=== PATIENT | female | born 1940 | race Caucasian/White ===

== ENCOUNTER 2023-11-16 08:15 | Day surgery (SDC) | payer MEDICARE ==
[~2023-11-16 08:15] MED LIST: ALPRAZolam 0.25 MG TAB PO PRN; ALPRAZolam 0.5 MG TAB PO PRN; ASPIRIN 325 MG TAB PO PRN; HEPARIN SODIUM,PORCINE (1 ML) 2,500 UNIT in SODIUM CHLORIDE 0.9% 250 ML IRRIGATION PRN; ZOLPIDEM 5 MG TAB PO PRN
[2023-11-16 08:43] VITALS: TEMP 98.2
[2023-11-16] MEDS: IV FLUID CONTINUATION 1,000 ML IV ONE (08:43)
[2023-11-16] MEDS: EMPTY BAG 1 BAG with SODIUM CHLORIDE 0.9% 1,000 ML IV SCH (08:43)
[2023-11-16 08:48] LABS: Basophils % (A) 0 %; Eosinophils # (A) 0.1 k/uL (0-0.7); Eosinophils % (A) 1 %; HCT 38.7 % (34.0-46.0); HGB 12.4 gm/dL (11.4-16.0); Hypochromasia Slight; Lymphocytes # (A) 1.7 k/uL (1.0-4.8); Lymphocytes % (A) 23 %; MCH 32.6 pg (25.0-35.0); MCV 101.8 fL (80.0-100.0); Macrocytosis Slight; Mean Platelet Volume 6.6; Monocytes # (A) 0.5 k/uL (0-1.0); Monocytes % (A) 7 %; Neutrophils # (A) 4.9 k/uL (1.3-7.7); Neutrophils % (A) 67 %; Platelet Count 268 k/uL (150-450); RDW 13.1 % (11.5-15.5); WBC 7.3 k/uL (3.8-10.6)
[2023-11-16 09:03] LABS: African American GFR (CKD) 64 (>60 ml/min/1.73 sqM); Anion Gap 11 mmol/L; Blood Urea Nitrogen 33 mg/dL (7-17); Calcium 9.6 mg/dL (8.4-10.2); Carbon Dioxide 22 mmol/L (22-30); Chloride 105 mmol/L (98-107); Glucose 98 mg/dL (74-99); Non-African American GFR(CKD) 56 (>60 ml/min/1.73 sqM); Sodium 138 mmol/L (137-145)
[2023-11-16] MEDS ORDERED: fentaNYL (PF) 50 MCG/ML 2 ML AMP ONE (10:32)
[2023-11-16] MEDS: MIDAZOLAM 2 MG/2 ML VIAL IVP ONE (10:37)
[2023-11-16] MEDS: LIDOCAINE 1% INJ 10MG/ML (20 ML MDV) SQ ONE (10:38)
[2023-11-16] MEDS: IOPAMIDOL-370 100ML BTL INJ ONE (10:50)
[2023-11-16] MEDS: HEPARIN SODIUM,PORCINE 10,000 UNIT in SODIUM CHLORIDE 0.9% 1,000 ML IRRIGATION PRN (10:50)
[2023-11-16] MEDS ORDERED: NALOXONE 0.4 MG/ML 1 ML VIAL IVP PRN (10:54)
--- NOTE | 2023-11-16 10:59 | P.PCN ---
Date of Procedure: 11/16/23 Operative Findings: AN ABDOMINAL AORTOGRAM AND BILATERAL LOWER EXTREMITIES RUNOFF PERFORMING PHYSICIAN: Scott Rg MD PROCEDURE PERFORMED: 1. An abdominal aortogram 2. Bilateral lower extremities runoff 3. Ultrasound-guided access of the right common femoral artery INDICATION: Symptomatic 82-year-old female patient with abnormal bilateral lower extremities arterial duplex study COMPLICATION: None LEVEL OF SEDATION: Moderate was sedation length of 13 minutes APPROACH: Right common femoral artery PROCEDURE DESCRIPTION: After obtaining informed consent and explaining the procedure benefits, risks, and complications, the patient was brought to the cardiac medical lab technician. The right groin was prepped and draped in sterile fashion. The right common femoral artery was cannulated using micropuncture technique, under ultrasound guidance. A micropuncture wire was advanced, and the micropuncture sheath was advanced over the wire, then the micropuncture sheath was exchanged over an 0.35 wire into a 5-Algerian sheath dilator assembly then the wire and dilator were removed and sheath was flushed. We did an abdominal aortogram and bilateral lower extremities runoff using 5- Algerian pigtail catheter using a power injection. The catheter was initially placed at the level of the renal arteries, and it was pulled into above the bifurcation of the aorta into right and left common iliac arteries. The procedure was completed and there was no complications. SELECTIVE PERIPHERAL ANGIOGRAM: The abdominal aorta: Calcified with no occlusive disease noted The common iliac arteries: Calcified with mild disease on the right and occluded on the left The external iliac arteries: Calcified with mild to moderate disease with no high-grade stenosis identified The internal iliac arteries: Are patent The common femoral arteries: The right common femoral artery has intermediate calcified eccentric plaque and the left common femoral artery appears to have mild disease only Superficial femoral arteries: Both SFA are occluded in the midportion Popliteal arteries: Both popliteal have mild disease only Below the knees: There are two-vessel runoff below the knee bilaterally CONCLUSION: Occluded left common iliac artery Intermediate disease involving the right common femoral artery Occluded bilateral SFA POSTPROCEDURE MANAGEMENT: PLAN CHECKER of the left common iliac artery.
[2023-11-16] MEDS ORDERED: SODIUM CHLORIDE 0.9% 1,000 ML in EMPTY BAG 1 BAG IV SCH (11:00)
[2023-11-16 13:10] VITALS: RESP 16
[2023-11-16 13:19] VITALS: PULSE 66
[2023-11-16 15:32] VITALS: BP 131/67
--- NOTE | 2023-12-06 22:42 | IR ---
EXAMINATION TYPE: IR angio abdominal w runoff DATE OF EXAM: 11/16/2023 11:33 AM COMPARISON: Pre Operative Images if available both CT/MRI or plain film CLINICAL INDICATION: Female, 83 years old with history of LEG PAIN; TECHNIQUE: IR angio abdominal w runoff, multiple fluoroscopic images provided for procedure. Total fluoroscopy time: 2.7 m,in Total submitted images to PACS: [id number] DAP: 1.71 mGym2 Gycm2 uGym2 cGycm2 or equivalent. FINDINGS: IMPRESSION: 1. No evidence for intraoperative complication. 2. Please see the operative/procedural note for further details. [facility], , 12/06/2023 10:40 PM
== END 2023-11-16 16:42 | disposition home or self-care (01) ==
LOC: CATHCVL 08:15
PROVIDERS: ATTEND Internal Medicine Interventional Cardiology
DX: I70.213 Atherosclerosis of native arteries of extremities with intermittent claudication, bilateral legs (principal); I10 Essential (primary) hypertension; E78.5 Hyperlipidemia, unspecified; Z79.82 Long term (current) use of aspirin; Z79.899 Other long term (current) drug therapy; Z87.891 Personal history of nicotine dependence
CPT/HCPCS: 36200; 75625; 75716; 80048; 85025; 99152; C1769 ×3; C1894; J2250; J1644; J2001; Q9967

== ENCOUNTER 2024-01-03 11:13 | Day surgery (SDC) | payer MEDICARE ==
[~2024-01-03 11:13] MED LIST changes: -ALPRAZolam 0.5 MG TAB PO PRN; -ASPIRIN 325 MG TAB PO PRN; +HEPARIN SODIUM,PORCINE 10,000 UNIT in SODIUM CHLORIDE 0.9% 1,000 ML IRRIGATION PRN
[2024-01-03] MEDS: EMPTY BAG 1 BAG with SODIUM CHLORIDE 0.9% 1,000 ML IV SCH (12:53)
[2024-01-03] MEDS: SODIUM CHLORIDE 0.9% 1,000 ML IV ONE (12:56)
[2024-01-03 12:59] LABS: Basophils % (A) 1 %; Eosinophils % (A) 0 %; HCT 38.4 % (34.0-46.0); HGB 12.3 gm/dL (11.4-16.0); Lymphocytes # (A) 1.7 k/uL (1.0-4.8); Lymphocytes % (A) 27 %; MCH 31.9 pg (25.0-35.0); MCHC 31.9 g/dL (31.0-37.0); MCV 99.9 fL (80.0-100.0); Mean Platelet Volume 7.1; Monocytes # (A) 0.3 k/uL (0-1.0); Monocytes % (A) 5 %; Neutrophils % (A) 65 %; Platelet Count 254 k/uL (150-450); RBC 3.85 m/uL (3.80-5.40); WBC 6.2 k/uL (3.8-10.6)
[2024-01-03 13:14] LABS: African American GFR (CKD) 67 (>60 ml/min/1.73 sqM); Anion Gap 11 mmol/L; Blood Urea Nitrogen 35 mg/dL (7-17); Calcium 9.9 mg/dL (8.4-10.2); Carbon Dioxide 20 mmol/L (22-30); Chloride 105 mmol/L (98-107); Glucose 99 mg/dL (74-99); Non-African American GFR(CKD) 59 (>60 ml/min/1.73 sqM); Potassium 4.9 mmol/L (3.5-5.1); Sodium 136 mmol/L (137-145)
[2024-01-03] MEDS: ASPIRIN 81 MG PO STA (13:25)
[2024-01-03] MEDS: HEPARIN SODIUM,PORCINE 10,000 UNIT in SODIUM CHLORIDE 0.9% 1,000 ML IRRIGATION ONE (14:38)
[2024-01-03] MEDS: fentaNYL (PF) 50 MCG/ML 2 ML AMP IVP ONE ×2 (14:51→17:45)
[2024-01-03] MEDS: MIDAZOLAM 2 MG/2 ML VIAL IVP ONE ×2 (14:51→15:33)
[2024-01-03] MEDS: LIDOCAINE 1% INJ 10MG/ML (20 ML MDV) SQ ONE (14:53)
[2024-01-03] MEDS: HEPARIN SODIUM 1,000 UN/ML (10ML VL) IV ONE (15:04)
[2024-01-03] MEDS: CLOPIDOGREL 75 MG TAB PO ONE (17:18)
[2024-01-03] MEDS: hydrALAZINE HCL 20 MG/ML 1 ML VIAL IVP ONE (17:35)
[2024-01-03] MEDS ORDERED: NALOXONE 0.4 MG/ML 1 ML VIAL IVP PRN (18:11)
[2024-01-03] MEDS ORDERED: ACETAMINOPHEN TAB 500 MG TAB PO PRN (18:11)
[2024-01-03] MEDS: IOPAMIDOL-370 100ML BTL INJ ONE ×2 (18:29)
--- NOTE | 2024-01-03 18:29 | P.PCN ---
Date of Procedure: 01/03/24 Operative Findings: PERCUTANEOUS PERIPHERAL INTERVENTION Performing physician Scott Rg M.D. Procedure performed 1. Successful stenting of bilateral common iliac arteries and left external iliac artery with an excellent angiographic results 2. Adjunctive use of IVUS and lithotripsy balloon 3. Bilateral common iliacs arteries and bilateral common femoral arteries angiogram 4. Ultrasound-guided access of bilateral common femoral arteries and right radial artery Indication Symptomatic 83-year-old female patient who underwent an angiogram and that revealed severe disease involving the right common iliac artery and occluded left common iliac artery Approach Bilateral femoral arteries and right radial artery Complications None Level of sedation Moderate with a sedation time of 189 minutes Procedure description After obtaining informed consent the patient was brought to the cardiac Keeler Polygraph Operator. The right common femoral artery was cannulated using micropuncture technique under ultrasound guidance the micropuncture wire passed easily then I placed initially a 6 Malian 23 cm Brite tip sheath at the right common femoral artery and the sheath was advanced under fluoroscopic guidance to the proximal right common iliac artery. Subsequently the left common femoral artery was cannulated using micropuncture technique under ultrasound guidance as well the micropuncture wire passed easily and subsequently I placed also a 23 cm Brite tip sheath 6 Malian at the left common femoral artery and the sheath was advanced under fluoroscopic guidance to the proximal left common iliac artery. An angiogram subsequently of bilateral iliac was performed from the right common femoral artery sheath. Anticoagulation was initiated using heparin with continuous ACT monitoring. Subsequently I did attempt crossing the chronic total occlusion COOKER TENDER of the left common iliac artery using ipsilateral retrograde technique and using a 3 5 stiff Glidewire with the backup support of 035 catheter. I ended in subintimal space. Attempting crossing the chronic total occlusion using 018 and all 4 wire also in ipsilateral retrograde technique was unsuccessful where I ended in subintimal space as well. At that point I decided to cross the COOKER TENDER of the left common iliac artery using contralateral antegrade technique coming from the right common femoral artery. That was performed using initially a rim catheter and subsequently Omni Flush catheter but because there was no enough support I was unable to cross the COOKER TENDER in antegrade technique from the contralateral side. At that point I decided to try again to cross the COOKER TENDER from the left common femoral artery sheath again and ipsilateral retrograde tech nique using a 035 wire again I ended in subintimal space and at that point after multiple attempts I decided to go ahead and proceed by accessing the right radial artery and coming from above to give me more support. The right radial artery was cannulated using micropuncture technique under ultrasound guidance the micropuncture wire passed easily and initially I placed a 6 Malian right radial sheath at the right radial artery and the sheath was flushed and subsequently the patient was given 2 mg of verapamil intra-arterial. After that I did advance an 035 stiff Glidewire under fluoroscopic guidance all the way to the aortic arch but the patient turned to have type III aortic arch and I had difficulties advancing my wire toward the descending aorta. Initially I placed a braided 6 Malian 110 cm sheath but I had to pull the sheath out because we do not have enough pigtail catheter to help in directing me toward the descending aorta and at that point I put a 6 Malian 11 cm regular sheath at the right radial artery and after that I was able to advance a regular 6 Malian pigtail to the ascending aorta and the pigtail was able to hold the stiff Glidewire to be directed toward the descending aorta. The wire was advanced all the way to the distal abdominal aorta just above the bifurcation of the right and left common iliac arteries then I did exchange my 11 cm 6 Malian sheath into the 110 cm braided 6 Malian sheath over 035 stiff Glidewire under fluoroscopy guidance and the sheath was advanced slowly and carefully all the way from the right arm toward the aortic arch toward the thoracic aorta toward the descending aorta and was stationed at the aortic bifurcation just above the bifurcation of the aorta at the right and left common iliac arteries. I did perform an angiogram from the long sheath coming from the arm and I was able to the stump of the left common iliac artery. 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 Subsequently the wire was advanced all the way to the left external iliac artery. Because the patient started experiencing right arm numbness which was getting worse because of the long sheath in the right arm I decided at that point to snare the wire coming from the arm and snare that from the left common femoral artery sheath and finish my case from above. That was performed using a snare and was successful. Subsequently the right radial sheath was pulled out completely and TR band was placed. After that I did exchange my 035 wire coming from the left into 014 wire. After that attempting doing IVUS was unsuccessful from the left common femoral artery because the wire turn to be 018 wire and now 014 wire. And by mistake unfortunately the 014 wire from the left side was pulled out. Attempting crossing the COOKER TENDER again coming from the left common femoral artery was unsuccessful but was successful this time coming from the right common femoral artery to the left common femoral artery where the wire again was snared. The wire was snared successfully. Please note that continuous ACT monitoring was performed throughout the procedure. After that I placed 014 wire on each side. IVUS was performed on the left side and showed a diameter of the left common iliac artery around 7 mm and on the right side was about 8 mm. On the left side the external iliac artery was noted to have a tight lesion with a diameter around 6 mm as well. I placed balloon expandable stent on each side and the right and left common iliac arteries using on the right 7.0 x 59 and on the right 8.0 x 59 balloon expandable stents. Both stents were positioned under fluoroscopy guidance and deployed simultaneously in a kissing technique. An angiogram showed excellent angiographic results in both common iliac arteries but there was a tight lesion involving the left external iliac artery which I decided to stent this time using self-expandable stent and that was performed using 7.0 x 60 mm self-expandable stent which again was positioned under fluoroscopy guidance with overlap between this stent and the stent in the left c ommon iliac artery and subsequently deployed completely and postdilated using 6 mm balloon with final angiogram showing excellent angiographic results with sluggish flow on the left because of the sheath was impeding the flow. Please note that we had to change the 6 Malian sheath into 7 Malian sheath to perform shockwave balloon on the right and left common iliac artery because they were extremely calcified with an arch of calcium about 360 degree. For that reason I did exchange the 23 cm 6 Malian sheath into 23 cm 7 Malian sheath over a 3 5 stiff Glidewire and we did lithotripsy balloon on both sides right and left common iliac arteries. By the end we did exchange the 23 cm sheath into 11 cm sheath using 035 stiff Glidewire and finally bilateral femoral arteries angiogram was performed. The procedure was completed with no complication and the patient tolerated the procedure very well Postprocedure management Dual antiplatelet therapy using aspirin and Plavix Aggressive cholesterol control Monitor the patient for additional 24 hours Follow-up with the patient Postprocedure management 1. Dual antiplatelet therapy 2. Aggressive cholesterol control 3. Risk factors modification 4. Follow-up with the patient
[2024-01-03 20:27] LABS: Glucose,Whole Blood 96 mg/dL (70-110)
[2024-01-03] MEDS: LISINOPRIL-HCTZ 20-12.5 MG 1 EACH TAB PO SCH (21:31)
[2024-01-03] MEDS: LATANOPROST 0.005% OPHTH DROPS 2.5 ML BTL BOTH EYES SCH (21:32)
[2024-01-03] MEDS: SODIUM CHLORIDE 0.9% 1,000 ML in EMPTY BAG 1 BAG IV SCH (21:32)
[2024-01-03] MEDS: HYDROmorphone 2 MG/ML 1 ML SYRINGE IVP STA (21:41)
[2024-01-03 22:03] VITALS: RESP 16
[2024-01-03] MEDS: ONDANSETRON 4 MG/2 ML VIAL IVP PRN (22:54)
[2024-01-04 07:55] LABS: African American GFR (CKD) 87 (>60 ml/min/1.73 sqM); Non-African American GFR(CKD) 76 (>60 ml/min/1.73 sqM)
[2024-01-04 07:59] VITALS: PULSE 80; TEMP 97.5
--- NOTE | 2024-01-04 08:18 | IR ---
EXAMINATION TYPE: IR cryptanalyst iliac DATE OF EXAM: 01/03/2024 6:30 PM COMPARISON: Pre Operative Images if available both CT/MRI or plain film CLINICAL INDICATION: Female, 83 years old with history of BILAT ILIAC STENTING, 75.1 MINS FLT, 0.419 GY; TECHNIQUE: IR cryptanalyst iliac, multiple fluoroscopic images provided for procedure. Total fluoroscopy time: 75.1 seconds Total submitted images to PACS: [id number] DAP: 0.419 mGym2 Gycm2 uGym2 cGycm2 or equivalent. FINDINGS: IMPRESSION: 1. Report was generated for administrative purposes only. 2. Please see the operative/procedural note for further details. [facility], , 01/04/2024 8:16 AM
[2024-01-04 10:28] VITALS: BP 127/61
[2024-01-04] MEDS: CLOPIDOGREL 75 MG TAB PO SCH (10:28)
[2024-01-04] MEDS: ASPIRIN 81 MG PO SCH (10:28)
[2024-01-04] MEDS: amLODIPine 5 MG TAB PO SCH (10:28)
[2024-01-04] MEDS: PRAVASTATIN SODIUM 40 MG TAB PO SCH (10:28)
--- NOTE | 2024-01-04 11:14 | P.DS ---
Providers Attending physician: Scott Rg Primary care physician: Marielos Kelley DO Hospital Course: This is an 83-year-old female who underwent stenting of bilateral common iliac arteries and left external iliac artery yesterday with Dr. Rg. Patient is doing well post procedure with no immediate complications noted. Patient will be continued on dual antiplatelet therapy with aspirin and Plavix for 12 months. She is to continue her current dose of pravastatin. The patient was deemed stable for discharge home today. Please see EMR for further hospital course details. Discharge diagnosis Peripheral arterial disease, status post stenting of bilateral common iliac arteries and left external iliac artery Nurse practitioner note has been reviewed by physician. Signing provider agrees with the documented findings, assessment, and plan of care documented by MOTTLE LAY UP OPERATOR as a scribe. Plan - Discharge Summary Discharge Rx Participant: No New Discharge Prescriptions: New Clopidogrel [Plavix] 75 mg PO DAILY #90 tablet Continue Pravastatin Sodium [Pravachol] 40 mg PO DAILY Unk Latanoprost Eye Drops 1 drop BOTH EYES HS Aspirin 81 mg PO DAILY amLODIPine [Norvasc] 5 mg PO DAILY Lisinopril-Hctz 20-12.5 mg [Zestoretic 20-12.5] 0.5 tab PO TID Acetaminophen [Tylenol Extra Strength] 500 mg PO DIRECTED PRN PRN Reason: Pain Discharge Medication List Acetaminophen [Tylenol Extra Strength] 500 mg PO DIRECTED PRN 11/13/23 [History] Lisinopril-Hctz 20-12.5 mg [Zestoretic 20-12.5] 0.5 tab PO TID 11/13/23 [History] Pravastatin Sodium [Pravachol] 40 mg PO DAILY 11/13/23 [History] Unk Latanoprost Eye Drops 1 drop BOTH EYES HS 11/13/23 [History] amLODIPine [Norvasc] 5 mg PO DAILY 11/13/23 [History] Aspirin 81 mg PO DAILY 11/16/23 [History] Clopidogrel [Plavix] 75 mg PO DAILY #90 tablet 01/04/24 [Rx] Follow up Appointment(s)/Referral(s): Scott Rg MD [STAFF PHYSICIAN] - 01/11/24 11:00 am (Dr. Nicholas patient) Patient Instructions/Handouts: Moderate Sedation (DC), Peripheral Vascular Angioplasty (DC), Angiography (DC), Peripheral Vascular Stent Placement (DC) Activity/Diet/Wound Care/Special Instructions: NO DRIVING FOR 3 DAYS. OK TO SHOWER TOMORROW BUT NO SOAKING IN TUBS, SWIMMING ECT TO PREVENT INFECTION. AVOID STAIRS, PUSHING, PULLING, LIFTING MORE THAN 10 LBS FOR 3 DAYS. SIGNS OF INFECTION IE: FEVER, RASH, UNUSUAL DRAINAGE, SWELLING OR HARD KNOT CONTACT DR OR GO TO ER TO EVALUATE. ACETAMINOPHEN FOR PAIN NEEDED DIRECTED. MEDICATIONS DIRECTED BY DR RG
== END 2024-01-04 11:23 | disposition home or self-care (01) ==
LOC: CATHCVL 11:13 → 3SCARD 18:00 → CATHCVL 01-04 11:23
PROVIDERS: ATTEND Internal Medicine Interventional Cardiology
DX: I70.213 Atherosclerosis of native arteries of extremities with intermittent claudication, bilateral legs (principal); I10 Essential (primary) hypertension; E78.5 Hyperlipidemia, unspecified; F17.200 Nicotine dependence, unspecified, uncomplicated; Z88.0 Allergy status to penicillin
CPT/HCPCS: 37221; 37223; 76937; 37252; 37253; 80048; 82565; 85025; C1773; C1769 ×4; C1894 ×3; C1725 ×2; C1876; C1887 ×2; C1753; C9765; C1874 ×2; J2250; J1171; J0360; J1644 ×2; J2405; J2003; J3010; Q9967